=== PATIENT | male | born 1940 | race Caucasian/White ===

== ENCOUNTER → 2025-07-07 14:54 | Outpatient (REF) | payer MEDICARE, SELFPAY | LOC: RAD 14:54 | PROVIDERS: ATTENDING PHYSICIAN Internal Medicine | DX: R91.1 Solitary pulmonary nodule (principal) | CPT/HCPCS: 71250 ==

== ENCOUNTER → 2025-07-09 06:56 | Outpatient (REF) | payer MEDICARE, SELFPAY | LOC: RAD 06:56 | PROVIDERS: ATTENDING PHYSICIAN Internal Medicine | DX: I71.9 Aortic aneurysm of unspecified site, without rupture (principal) | CPT/HCPCS: 76770 ==